=== PATIENT | female | born 1960 | race Two or more races ===

== ENCOUNTER 2025-02-24 10:03 | Outpatient (RCR) | payer MEDICARE, MEDICAID, SELFPAY ==
--- NOTE | 2025-02-24 10:00 | XR_ITS ---
Examination: YOGI, hepatobiliary radioisotope scan Gallbladder ejection fraction study. Date and time of exam: February 24, 2025 0944 hours INDICATIONS: Right upper abdominal pain with nausea vomiting this week, outside ultrasound examination distended gallbladder Technique: 5.7 mCi of 99M Hepatolite administered. Serial imaging then obtained from immediate through 60 minutes. 1.2 mcg selective catheter Kinevac administered for gallbladder ejection fraction study. Findings: Radioisotope activity within the liver is reasonably homogenous. Gallbladder, common bile duct small bowel activity noted Impression: Gallbladder activity Abnormal gallbladder ejection fraction, 14%, normal greater than 35%
== END 2025-03-01 23:59 | disposition home or self-care (01) ==
LOC: SNUC 10:03
PROVIDERS: PCP Nurse Practitioner Family; Referring Provider Nurse Practitioner Family; Visit Provider Nurse Practitioner Family
DX: R93.2 Abnormal findings on diagnostic imaging of liver and biliary tract (principal)
CPT/HCPCS: 78227; A9537; J2805